=== PATIENT | male | born 1990 | race African-American/Black ===

== ENCOUNTER → 2017-07-30 | Emergency (ER) | payer OTHER ==
[~2017-07-30] VITALS: Ht 180.3 cm; Wt 80.7 kg
[~2017-07-30] MED LIST: INTESTINEX1 CAP PO; KETO10TA2 PO; LEVSIN/SL0.125 MG SL; MEDROLPACK PO; ORPHENADRINE C100 MG PO; PRILOSEC20 MG PO; ZANTAC300 MG PO
== END | disposition home or self-care (01) ==
LOC: ER 10:21
DX: S63.502A Unspecified sprain of left wrist, initial encounter (principal); M79.642 Pain in left hand; X50.0XXA Overexertion from strenuous movement or load, initial encounter; Y93.B2 Activity, push-ups, pull-ups, sit-ups; Y92.69 Other specified industrial and construction area as the place of occurrence of the external cause; Y99.8 Other external cause status

== ENCOUNTER → 2020-01-18 15:00 | Outpatient (CLI) | payer OTHER | END | disposition home or self-care (01) | LOC: PPH VACUNA 15:00 | DX: Z23 Encounter for immunization (principal) ==

== ENCOUNTER → 2020-04-28 | Emergency (ER) | payer OTHER ==
[~2020-04-28] VITALS: Ht 180.3 cm; Wt 81.6 kg
[~2020-04-28] MED LIST changes: +NORFLEX100MG PO; +ZANAFLEX4 M1 PO
== END | disposition home or self-care (01) ==
LOC: ER 15:14
DX: M54.2 Cervicalgia (principal); M25.511 Pain in right shoulder

== ENCOUNTER 2021-02-18 15:25 | Outpatient (CLI) | payer OTHER | END 2021-02-18 23:00 | disposition home or self-care (01) | LOC: LAB 15:25 | DX: Z03.818 Encounter for observation for suspected exposure to other biological agents ruled out (principal); J06.9 Acute upper respiratory infection, unspecified ==